=== PATIENT | male | born 1975 | race Caucasian/White ===

== ENCOUNTER → 2019-05-21 | Outpatient (CLI) | payer OTHER | LOC: COL.RAD 08:15 | DX: M41.9 Scoliosis, unspecified (principal) ==

== ENCOUNTER → 2019-05-29 | Outpatient (CLI) | payer OTHER | LOC: COL.RAD 07:22 | DX: M41.83 Other forms of scoliosis, cervicothoracic region (principal); Z98.1 Arthrodesis status | CPT/HCPCS: A9585 ==